=== PATIENT | male | born 1965 | race African-American/Black ===

== ENCOUNTER 2016-10-10 12:33 | Emergency (ER) | payer MEDICAID ==
--- NOTE | 2016-10-10 12:55 | ER Document Report ---
ED Medical Screen (RME) - General Stated Complaint: SLURRED SPEACH Mode of Arrival: Ambulatory Information source: Patient Notes: Patient presents to the emergency department with difficulty speaking, altered speech for one month . Patient also reports weakness, dizziness and left arm numbness that started at 9:30 last night. Denies chest pain. History of throat cancer. Patient does have a G-tube. Recent chemotherapy. Denies CAD, HTN. I have greeted and performed a rapid initial assessment of this patient. A comprehensive ED assessment and evaluation of the patient, analysis of test results and completion of the medical decision making process will be conducted by additional ED providers. TRAVEL OUTSIDE OF THE [place] IN LAST 30 DAYS: No - Related Data Allergies/Adverse Reactions: No Known Allergies Allergy (Verified 10/10/16 12:46) Past Medical History Psychiatric Medical History: Denies: Hx Depression Past Surgical History: Reports: Hx Abdominal Surgery - G Tube placement - Immunizations Hx Diphtheria, Pertussis, Tetanus Vaccination: No - Patient unsure when last tetanus was Physical Exam - Vital signs Vitals: Temp Pulse Resp BP Pulse Ox 97.9 F 96 16 118/76 98 10/10/16 12:40 10/10/16 12:40 10/10/16 12:40 10/10/16 12:40 10/10/16 12:40 Course - Vital Signs Vital signs: Temp Pulse Resp BP Pulse Ox 97.9 F 96 16 118/76 98 10/10/16 12:40 10/10/16 12:40 10/10/16 12:40 10/10/16 12:40 10/10/16 12:40
[2016-10-10 13:49] LABS: ABSOLUTE LYMPHOCYTES (AUTO) 1.1 10^3/uL (0.5-4.7); ABSOLUTE MONOCYTES (AUTO) 0.2 10^3/uL (0.1-1.4); ABSOLUTE NEUT (AUTO) 1.8 10^3/uL (1.7-8.2); BASOPHILS % (AUTO) 0.7 % (0-2); HEMOGLOBIN 12.1 g/dL (13.5-17.0); MEAN CORPUSCULAR VOLUME 85 fl (80-97); RED CELL DISTRIBUTION WIDTH 14.5 % (11.5-14.0)
[2016-10-10 13:55] LABS: APPEARANCE,URINE SLIGHTLY-CLOUDY; BILIRUBIN,URINE NEGATIVE (NEGATIVE); GLUCOSE, URINE NEGATIVE (NEGATIVE); KETONES,URINE NEGATIVE (NEGATIVE); LEUKOCYTE ESTERASE,URINE NEGATIVE (NEGATIVE); NITRITE,URINE NEGATIVE (NEGATIVE); PROTEIN,URINE NEGATIVE (NEGATIVE); URINE SPECIFIC GRAVITY 1.021; UROBILINOGEN,URINE NEGATIVE mg/dL (<2.0)
[2016-10-10 14:04] LABS: EOSINOPHILS % (AUTO) 1.1 % (0-6); HEMATOCRIT 36.3 % (37.9-51.0); LYMPHOCYTES % (AUTO) 34.1 % (13-45); MEAN CORPUSCULAR HEMOGLOBIN 28.3 pg (27.0-33.4); MEAN CORPUSCULAR HGB CONC 33.4 g/dL (32.0-36.0); MONOCYTES % (AUTO) 7.8 % (3-13); RED BLOOD COUNT 4.28 10^6/uL (4.35-5.55); SEGMENTED NEUTROPHILS % (AUTO) 56.3 % (42-78); WHITE BLOOD COUNT 3.2 10^3/uL (4.0-10.5)
[2016-10-10 14:09] LABS: ALANINE AMINOTRANSFERASE 26 U/L (21-72); ALKALINE PHOSPHATASE 59 U/L (38-126); ANION GAP 11 (5-19); ASPARTATE AMINO TRANSFERASE 21 U/L (17-59); BILIRUBIN,DIRECT 0.2 mg/dL (0.0-0.4); BILIRUBIN,TOTAL 0.5 mg/dL (0.2-1.3); BLOOD UREA NITROGEN 14 mg/dL (7-20); CALCIUM 9.4 mg/dL (8.4-10.2); CARBON DIOXIDE 31 mmol/L (22-30); CHLORIDE 102 mmol/L (98-107); CREATININE RESULT 0.91 mg/dL (0.52-1.25); GLUCOSE 102 mg/dL (75-110); POTASSIUM 4.4 mmol/L (3.6-5.0); SODIUM 144.3 mmol/L (137-145); TOTAL PROTEIN 6.8 g/dL (6.3-8.2)
--- NOTE | 2016-10-10 16:06 | EKG REPORT ---
SEVERITY:- NORMAL ECG - SINUS RHYTHM : Confirmed by: Vern Baker 10-Oct-2016 16:05:31
--- NOTE | 2016-10-10 16:37 | ER Document Report ---
ED General - General Chief Complaint: S/S of Possible Stroke Stated Complaint: SLURRED SPEECH Mode of Arrival: Ambulatory TRAVEL OUTSIDE OF THE [place] IN LAST 30 DAYS: No - HPI Patient complains to provider of: slurred speech arm numbness Notes: Patient with a history of throat cancer with last chemotherapy and radiation 2016 gender in August respectively. Patient states however the last 4 months is been having intermittent slurred speech and also some left arm numbness. Patient also states he did have a port in his left arm. Patient states went to PCPs office today for evaluation and was referred to the ER. Upon my evaluation patient is sitting comfortably in no obvious distress denies any recent trauma denies any fevers chills nausea vomiting. Patient is a systematic at this time. - Related Data Allergies/Adverse Reactions: No Known Allergies Allergy (Verified 10/10/16 12:46) Past Medical History - General Information source: Patient - Social History Smoking Status: Former Smoker Chew tobacco use (# tins/day): No Family History: Reviewed & Not Pertinent Patient has suicidal ideation: No Patient has homicidal ideation: No Renal/ Medical History: Denies: Hx Peritoneal Dialysis Psychiatric Medical History: Denies: Hx Depression Past Surgical History: Reports: Hx Abdominal Surgery - G Tube placement - Immunizations Hx Diphtheria, Pertussis, Tetanus Vaccination: No - Patient unsure when last tetanus was Review of Systems - Review of Systems Constitutional: No symptoms reported EENT: No symptoms reported Cardiovascular: No symptoms reported Respiratory: No symptoms reported Gastrointestinal: No symptoms reported Genitourinary: No symptoms reported Male Genitourinary: No symptoms reported Musculoskeletal: No symptoms reported Skin: No symptoms reported Hematologic/Lymphatic: No symptoms reported Neurological/Psychological: Other - Numbness tingling left arm slurred speech intermittent Physical Exam - Vital signs Vitals: Temp Pulse Resp BP Pulse Ox 97.9 F 96 16 118/76 98 10/10/16 12:40 10/10/16 12:40 10/10/16 12:40 10/10/16 12:40 10/10/16 12:40 Interpretation: Normal - General General appearance: Appears well, Alert - HEENT Head: Normocephalic, Atraumatic Eyes: Normal Pupils: PERRL - Respiratory Respiratory status: No respiratory distress Chest status: Nontender Breath sounds: Normal Chest palpation: Normal - Cardiovascular Rhythm: Regular Heart sounds: Normal auscultation Murmur: No - Abdominal Inspection: Normal Distension: No distension Bowel sounds: Normal Tenderness: Nontender Organomegaly: No organomegaly - Back Back: Normal, Nontender - Extremities General upper extremity: Normal inspection, Nontender, Normal color, Normal ROM , Normal temperature General lower extremity: Normal inspection, Nontender, Normal color, Normal ROM , Normal temperature, Normal weight bearing. 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 Patient's symptoms ongoing for greater than 48 hours. Patient not a candidate for any chemotherapy patient is symptomatically upon my evaluation tonight score 0. I did explain to patient more likely the numbness that he is experiencing does travel along a dermatomal pattern does not do to the hand that goes along the superficial portion of the arm along dermatomal region C5-C6. Explained to patient more likely symptoms are due to the radiation patient does have obvious changes to the skin sinus neck radiation was performed. I did discuss patient' s case with PCP agrees patient safely discharged home follow-up in his office. Family and patient agrees with plan - Vital Signs Vital signs: Temp Pulse Resp BP Pulse Ox 97.9 F 70 0 L 123/77 96 10/10/16 12:40 10/10/16 16:43 10/10/16 16:04 10/10/16 16:43 10/10/16 16:43 - Laboratory Result Diagrams: 10/10/16 13:11 10/10/16 13:11 Laboratory results interpreted by me: 10/10/16 10/10/16 13:11 13:11 WBC 3.2 L RBC 4.28 L Hgb 12.1 L Hct 36.3 L RDW 14.5 H Carbon Dioxide 31 H Discharge - Discharge Clinical Impression: Numbness and tingling in left arm Condition: Good Disposition: HOME, SELF-CARE Instructions: Numbness or Paresthesia ([facility]) Additional Instructions: Your head CT today shows no signs of stroke. I do believe some your symptoms are coming from your recent radiation do to your throat cancer. I discussed your results with your primary care physician. He agrees with this assessment we can discharge home please continue your home medication as prescribed follow- up with your doctor next 3-5 days Referrals: HÉCTOR PENA MD [Primary Care Provider] - Follow up in 3-5 days
[2016-10-10 16:44] VITALS: BP 123/77
== END 2016-10-10 16:43 | disposition home or self-care (01) ==
LOC: ER 12:33
DX: R20.0 Anesthesia of skin (principal); R20.2 Paresthesia of skin; R47.81 Slurred speech; R23.9 Unspecified skin changes; Z85.819 Personal history of malignant neoplasm of unspecified site of lip, oral cavity, and pharynx; Z92.21 Personal history of antineoplastic chemotherapy; Z92.3 Personal history of irradiation; Z87.891 Personal history of nicotine dependence
CPT/HCPCS: 36415; 70450; 71020; 80053; 81001; 85025; 93005; 93010; 99285

== ENCOUNTER → 2017-03-07 | Day surgery (SDC) | payer MEDICAID ==
--- NOTE | 2017-03-07 17:12 | OPERATIVE REPORT E ---
Operative Report NAME: WILLA RAMIRES : 1965 AGE: 51Y DATE OF SURGERY: 03/07/2017 ROOM: PREOPERATIVE DIAGNOSIS: Malfunctioning G-tube. POSTOPERATIVE DIAGNOSIS: Malfunctioning G-tube. OPERATION: G-tube replacement. SURGEON: PRATIK DALY M.D. MEDICATION: None. TISSUE REMOVED OR ALTERED: None. PROCEDURE: After informed consent obtained from patient, he was left in the supine position. The old original 20 [place]ian gastrostomy tube was pulled out of the patient with minimum difficulty. It was then replaced with a 20 [place]divian 4.5 cm low-profile gastrostomy tube. The balloon was inflated with 6 mL of water. There was good flow of gastric content. He tolerated the procedure well. DICTATING PHYSICIAN: PRATIK DALY M.D. [id number] PHY#: [id number] ID: [id number] JOB#: [id number] ACCT: [id number] cc:PRATIK DALY M.D. >
== END ==
LOC: END 15:25
PROVIDERS: ATTEND Internal Medicine Gastroenterology
PROC: 0D20XUZ Change Feeding Device in Upper Intestinal Tract, External Approach (ICD-10-PCS; principal; 2017-03-07)
DX: Z93.1 Gastrostomy status (principal); K22.2 Esophageal obstruction; Z79.899 Other long term (current) drug therapy; Z79.82 Long term (current) use of aspirin
CPT/HCPCS: 43760

== ENCOUNTER → 2017-05-30 | Outpatient (CLI) | payer MEDICAID ==
--- NOTE | 2017-05-30 12:31 | RADIOLOGY REPORT (SQ) ---
EXAM DESCRIPTION: CHEST PA/LATERAL COMPLETED DATE/TIME: 05/30/2017 8:14 am REASON FOR STUDY: MALIGNANT NEOPLASM OF HEAD, FACE AND NECK COMPARISON: 10/10/2016 EXAM PARAMETERS: NUMBER OF VIEWS: two views TECHNIQUE: Digital Frontal and Lateral radiographic views of the chest acquired. RADIATION DOSE: NA LIMITATIONS: none FINDINGS: LUNGS AND PLEURA: No opacities, masses or pneumothorax. No pleural effusion. MEDIASTINUM AND HILAR STRUCTURES: No masses or contour abnormalities. HEART AND VASCULAR STRUCTURES: Heart normal size. No evidence for failure. BONES: No acute findings. HARDWARE: None in the chest. OTHER: No other significant finding. IMPRESSION: NO SIGNIFICANT RADIOGRAPHIC FINDING IN THE CHEST. TECHNICAL DOCUMENTATION: JOB ID: [id number] [employer]- All Rights Reserved
== END ==
LOC: OD 07:58
PROVIDERS: ATTEND Internal Medicine Medical Oncology
DX: C76.0 Malignant neoplasm of head, face and neck (principal); C01 Malignant neoplasm of base of tongue
CPT/HCPCS: 71020

== ENCOUNTER → 2017-06-13 | Outpatient (CLI) | payer MEDICAID ==
--- NOTE | 2017-06-13 13:37 | RADIOLOGY REPORT (SQ) ---
EXAM DESCRIPTION: MRI HEAD COMBO COMPLETED DATE/TIME: 06/13/2017 12:53 pm REASON FOR STUDY: HEADACHE R51 HEADACHE COMPARISON: MRI brain 08/05/2015 CT brain 10/10/2016 TECHNIQUE: Multiplanar imaging includes noncontrasted T1, T2, FLAIR, diffusion with ADC map and post gadolinium contrast T1 sequences. Images stored on PACS. CONTRAST TYPE AND DOSE: 15 mL Multihance. RENAL FUNCTION: GFR > 60. LIMITATIONS: None. FINDINGS: ANATOMY: No anomalies. Normal vascular flow voids. Pituitary fossa normal. CSF SPACES: Normal in size and contour. No hemorrhage. CEREBRUM: Sulci and gyri normal in size and contour. Old right frontal deep periventricular white ma tter infarct on axial T2 image 20, unchanged from MRI brain 08/05/2015. Stable gliosis along perivasc ular spaces in the bifrontal and biparietal regions. No evidence of acute hemorrhage, mass, or extra axial fluid collection. No abnormal enhancement post contrast. POSTERIOR FOSSA: No signal alteration. No hemorrhage. No edema, masses, or mass effect. Internal drew tory canals, cerebellopontine angles, mastoids normal. No enhancing lesions. No abnormal enhancement post contrast. DIFFUSION IMAGING: Negative for acute or subacute infarction. ORBITS: No masses. Globes normal. PARANASAL SINUSES: No fluid levels. Mucosa normal. OTHER: No other significant finding. 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 EVIDENCE OF ACUTE STROKE: NO. TECHNICAL DOCUMENTATION: JOB ID: [id number] [employer]- All Rights Reserved
== END ==
LOC: RAD 13:14
PROVIDERS: ATTEND Internal Medicine Medical Oncology
DX: R51 Headache (principal)
CPT/HCPCS: 70553; A9577

== ENCOUNTER → 2017-07-03 | Outpatient (CLI) | payer MEDICAID ==
--- NOTE | 2017-07-03 15:54 | RADIOLOGY REPORT (SQ) ---
EXAM DESCRIPTION: CT SOFT TISSUE NECK WITH COMPLETED DATE/TIME: 07/03/2017 3:34 pm REASON FOR STUDY: ENLARGED LYMPH NODES R59.0 LOCALIZED ENLARGED LYMPH NODES COMPARISON: PET-CT 02/19/2016 CT brain 10/10/2016 MRI brain 06/13/2017 TECHNIQUE: Post IV contrasted scanning from skull base through lung apices with review of bone, soft tissue and lung windows. Reconstructed coronal and sagittal MPR images reviewed. All images stored on PACS. All CT scanners at this facility use dose modulation, iterative reconstruction, and/or weight based d osing when appropriate to reduce radiation dose to as low as reasonably achievable (ALARA). [facility]: Dose Right [facility]: CareDose [facility]: Dose Right [facility]: Teradose 4D [facility]: [employer] CONTRAST TYPE AND DOSE: contrast/concentration: Isovue 370.00 mg/ml; Total Contrast Delivered: 75.0 ml; Total Saline Delivered: 55.0 ml RENAL FUNCTION: 1.3 creatinine RADIATION DOSE: 20.9 mGy LIMITATIONS: None. FINDINGS: SKULL BASE: Intact. MAJOR SALIVARY GLANDS: Very subtle asymmetric increased contrast enhancement of the left submandibula r gland as compared to the right. This could indicate sialadenitis. No dilatation of the left subma ndibular duct. Right submandibular gland, bilateral sublingual and parotid glands are unremarkable. LYMPHADENOPATHY: No adenopathy. MUCOSAL MASSES OR ASYMMETRY: No mucosal masses or asymmetry. LARYNX/CORDS: There is very mild thickening of the epiglottis and aryepiglottic folds, this could be related to prior head and neck radiation therapy. VASCULAR STRUCTURES: The major vessels are patent. LUNG APICES: Clear. BONES: Intact. THYROID: Normal size. No masses. PARANASAL SINUSES: Clear. OTHER: No other significant finding. IMPRESSION: Very subtle asymmetric enhancement of the left submandibular gland as compared to the ri ght, this could indicate sialadenitis. No salivary stones are identified. TECHNICAL DOCUMENTATION: JOB ID: [id number] Quality ID # [id number]: Final reports with documentation of one or more dose reduction techniques (e.g., Au tomated exposure control, adjustment of the mA and/or kV according to patient size, use of iterative reconstruction technique) 2010 [employer]- All Rights Reserved
== END ==
LOC: RAD 14:52
PROVIDERS: ATTEND Internal Medicine Medical Oncology
DX: R59.0 Localized enlarged lymph nodes (principal)
CPT/HCPCS: 70491; 82565

== ENCOUNTER → 2019-06-19 | Outpatient (CLI) | payer MEDICAID ==
--- NOTE | 2019-06-19 13:43 | RADIOLOGY REPORT (SQ) ---
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 Reconstructed coronal and sagittal MPR images reviewed. All images stored on PACS. All CT scanners at this facility use dose modulation, iterative reconstruction, and/or weight based d osing when appropriate to reduce radiation dose to as low as reasonably achievable (ALARA). [facility]: Dose Right [facility]: CareDose [facility]: Dose Right [facility]: Teradose 4D [facility]: [employer] CONTRAST TYPE AND DOSE: 80 mL of IV Omnipaque 350- low osmolar. RENAL FUNCTION: Creatinine 0.96 RADIATION DOSE: 18 mGy . LIMITATIONS: None. FINDINGS: SKULL BASE: Inferior brain parenchyma unremarkable MAJOR SALIVARY GLANDS: No solid or cystic masses. No inflammatory changes. LYMPHADENOPATHY: No adenopathy. Single borderline enlarged level 3 lymph node right neck, axial imag e 40/111. This lymph node measures 10 x 7 mm today (was 6 x 4 mm on 07/03/2017). MUCOSAL MASSES OR ASYMMETRY: No mucosal masses or asymmetry. LARYNX/CORDS: Thickening of the epiglottis, similar compared to prior exams VASCULAR STRUCTURES: Bilateral carotid bifurcation calcifications without flow significant stenosis LUNG APICES: Clear. BONES: Intact. THYROID: Normal size. No masses. PARANASAL SINUSES: Clear. OTHER: No other significant finding. IMPRESSION: Single borderline enlarged level 3 lymph node right neck. Otherwise unremarkable study. TECHNICAL DOCUMENTATION: JOB ID: [id number] Quality ID # [id number]: Final reports with documentation of one or more dose reduction techniques (e.g., Au tomated exposure control, adjustment of the mA and/or kV according to patient size, use of iterative reconstruction technique) 2010 [employer]- All Rights Reserved Reading location - IP/workstation name: [email or web address]
--- NOTE | 2019-06-19 17:59 | RADIOLOGY REPORT (SQ) ---
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 TECHNIQUE: CT scan of the chest performed using helical scanning technique with dynamic intravenous contrast injection. Images reviewed with lung, soft tissue and bone windows. Reconstructed coronal and sagittal MPR and MIP images reviewed. All images stored on PACS. All CT scanners at this facility use dose modulation, iterative reconstruction, and/or weight based d osing when appropriate to reduce radiation dose to as low as reasonably achievable (ALARA). [facility]: Dose Right [facility]: CareDose [facility]: Dose Right [facility]: Teradose 4D [facility]: [employer] CONTRAST TYPE AND DOSE: contrast/concentration: Isovue 350.00 mg/ml; Total Contrast Delivered: 80.0 ml; Total Saline Delivered: 53.6 ml RENAL FUNCTION: BUN 16 creatinine 0.96 RADIATION DOSE: . LIMITATIONS: None. FINDINGS: LUNGS AND PLEURA: No opacities, nodules, masses. No pneumothorax. No effusions. HILAR AND MEDIASTINAL STRUCTURES: No identified masses or abnormal nodes. HEART AND VASCULAR STRUCTURES: No aneurysm or dissection. No central pulmonary emboli. No pericardi al effusion. HARDWARE: None in the chest. UPPER ABDOMEN: No significant findings. Limited exam. THYROID AND OTHER SOFT TISSUES: No masses. No adenopathy. BONES: No significant finding. OTHER: No other significant finding. IMPRESSION: NORMAL CT OF THE CHEST WITH IV CONTRAST. TECHNICAL DOCUMENTATION: JOB ID: [id number] Quality ID # [id number]: Final reports with documentation of one or more dose reduction techniques (e.g., Au tomated exposure control, adjustment of the mA and/or kV according to patient size, use of iterative reconstruction technique) 2010 [employer]- All Rights Reserved Reading location - IP/workstation name: [email or web address]
== END ==
LOC: RAD 12:58
PROVIDERS: ATTEND Internal Medicine Hematology & Oncology
DX: C01 Malignant neoplasm of base of tongue (principal)
CPT/HCPCS: 70491; 71260

== ENCOUNTER → 2020-01-07 | Outpatient (CLI) | payer MEDICAID ==
--- NOTE | 2020-01-07 14:00 | RADIOLOGY REPORT (SQ) ---
EXAM DESCRIPTION: KNEE LEFT 2 VIEWS IMAGES COMPLETED DATE/TIME: 01/07/2020 12:43 pm REASON FOR STUDY: PAIN IN LT KNEE M25.562 PAIN IN LEFT KNEE COMPARISON: None. NUMBER OF VIEWS: Two views. TECHNIQUE: AP and lateral radiographic images acquired of the left knee. LIMITATIONS: None. FINDINGS: MINERALIZATION: Normal. BONES: No acute fracture or dislocation. No worrisome bone lesions. JOINT: Minimal narrowing of the medial compartment. Small marginal osteophytes in the lateral compar tment. SOFT TISSUES: No soft tissue swelling. No radio-opaque foreign body. OTHER: No other significant finding. IMPRESSION: Mild degenerative joint changes. TECHNICAL DOCUMENTATION: JOB ID: [id number] 2010 [employer]- All Rights Reserved Reading location - IP/workstation name: [email or web address]
== END ==
LOC: OD 12:25
PROVIDERS: ATTEND Nurse Practitioner Adult Health
DX: M25.562 Pain in left knee (principal)

== ENCOUNTER → 2020-01-19 | Outpatient (CLI) | payer MEDICAID ==
--- NOTE | 2020-01-19 12:59 | RADIOLOGY REPORT (SQ) ---
EXAM DESCRIPTION: MRI LT LOWER JOINT WITHOUT IMAGES COMPLETED DATE/TIME: 01/19/2020 11:34 am REASON FOR STUDY: M25.469 JOINT EFFUSION (LT KNEE) M25.469 EFFUSION, UNSPECIFIED KNEE COMPARISON: None. TECHNIQUE: Non arthrogram non contrasted MRI leftknee images acquired and stored on PACS. Multiplan ar images include fat sensitive sequences as T1, water sensitive sequences as FST2 or STIR, cartilage sensitive sequences as FSPD, and gradient echo sequences. LIMITATIONS: None. FINDINGS: JOINT AND BURSAE: Moderate suprapatellar knee joint effusion. No [place] cyst. BONE CORTEX AND MARROW: Nondisplaced fracture with marrow edema along the posterior edge medial tibia l plateau, best shown on sagittal image 10/26 and axial image 19. ACL: Torn, best shown on sagittal image 13 PCL: Intact. MCL: Intact. No periligamentous edema or fluid. LCL: Intact. No periligamentous edema or fluid. MEDIAL MENISCUS: Medial meniscus bucket-handle tear flipped medially, best shown on coronal images 10 -21 LATERAL MENISCUS: No tears. No abnormal signal. MEDIAL COMPARTMENT: Cartilage preserved. No bone bruises or reactive marrow edema. No osteophytes. LATERAL COMPARTMENT: Cartilage preserved. No bone bruises or reactive marrow edema. No osteophytes. PATELLA: No chondromalacia. No subchondral cysts. Medial and lateral retinacula intact. EXTENSOR MECHANISM: Intact. Quadriceps and patella tendons normal. SOFT TISSUES: Adjacent muscles and subcutaneous tissues normal. Normal flow void in popliteal artery and vein. OTHER: No other significant finding. IMPRESSION: Torn anterior cruciate ligament Medial meniscus bucket-handle tear Nondisplaced nondepressed fracture, posterior edge medial tibial plateau TECHNICAL DOCUMENTATION: JOB ID: [id number] [employer]- All Rights Reserved Reading location - IP/workstation name: [email or web address]
== END ==
LOC: RAD 11:00
PROVIDERS: ATTEND Nurse Practitioner Adult Health
DX: M25.462 Effusion, left knee (principal); S82.145A Nondisplaced bicondylar fracture of left tibia, initial encounter for closed fracture; S83.212A Bucket-handle tear of medial meniscus, current injury, left knee, initial encounter; S83.512A Sprain of anterior cruciate ligament of left knee, initial encounter; X58.XXXA Exposure to other specified factors, initial encounter